=== PATIENT | male | born 1985 | race Caucasian/White ===

== ENCOUNTER 2019-10-01 07:39 | Day surgery (SDC) | payer OTHER ==
[~2019-10-01] VITALS: Ht 193 cm; Wt 80.8 kg
[~2019-10-01 07:39] MED LIST: ALPR0.5T PO; HYDR2TAB36 PO
[2019-10-01 08:17] VITALS: Ht 193 cm; Wt 80.8 kg
[2019-10-01 08:22] VITALS: BP 110/75; PULSE 101; RESP 16
[2019-10-01] MEDS ORDERED: LIDOCAINE 1% (MPF) 5 ML VIAL ONE (09:48)
[2019-10-01 10:19] VITALS: BP 106/56; PULSE 93; RESP 16
== END 2019-10-01 10:49 | disposition home or self-care (01) ==
LOC: RAD 07:39 → SDS 07:39 → RAD 10:49
PROVIDERS: ATTEND Radiology Diagnostic Radiology
DX: R18.8 Other ascites (principal); I10 Essential (primary) hypertension